=== PATIENT | female | born 2000 | race Caucasian/White ===

== ENCOUNTER 2019-04-29 19:45 | Emergency (ER) | payer BC, OTHER ==
[~2019-04-29] VITALS: Ht 160 cm; Wt 106.0 kg
[2019-04-29 19:55] VITALS: BP 139/79
[2019-04-29] MEDS ORDERED: HYDROcodone/APAP 5/325 TABLET ONE (20:08)
[2019-04-29] MEDS ORDERED: HYDROcodone/APAP 5/325 TABLET PO ONE (20:30)
== END 2019-04-29 21:04 | disposition home or self-care (01) ==
LOC: ED 20:40
DX: S63.267A Dislocation of metacarpophalangeal joint of left little finger, initial encounter (principal); W21.01XA Struck by football, initial encounter; Y93.61 Activity, american tackle football; Y92.830 Public park as the place of occurrence of the external cause; Y99.8 Other external cause status
CPT/HCPCS: 26700; 99284